=== PATIENT | male | born 1945 | race Caucasian/White ===

== ENCOUNTER 2017-09-27 18:43 | Inpatient (IN) | payer MEDICARE ==
[2017-09-27 19:04] LABS: #Basophils 0.1 thou/uL (0.0-0.2); #Eosinphils 0.2 thou/uL (0.0-0.7); #Monocytes 1.1 thou/uL (0.11-0.59); #Neutrophils 5.8 thou/uL (1.40-6.50); %Basophils 1.2 % (0.0-1.0); %Eosinophils 2.7 % (0.0-10.0); %Lymphocytes 21.8 % (21.0-51.0); %Monocytes 11.5 % (0.0-10.0); %Neutrophils 62.9 % (42.0-75.0); Hemoglobin 15.6 g/dL (14.0-18.0); Mean Corpuscular HGB CONC 36.2 g/dL (32.0-36.0); Mean Corpuscular Hemoglobin 31.5 pg (27.0-31.0); Mean Platelet Volume 8.9 fL (7.4-10.4); Platelet Count 251 thou/uL (130-400); RBC Distribution Width 11.5 % (11.5-14.5); Red Blood Cell (RBC) Count 4.96 mill/uL (4.70-6.10); White Blood Cell (WBC) Count 9.2 thou/uL (4.8-10.8)
[2017-09-27] MEDS ORDERED: Diltiazem 125 MG/25 ML ONE (19:06)
[2017-09-27] MEDS ORDERED: Enoxaparin Sodium 100 MG/ML SYRINGE ONE (19:06)
--- NOTE | 2017-09-27 19:12 | RAD ---
ONE VIEW CHEST: 09/27/17 HISTORY: Palpitations. New onset atrial fibrillation. COMPARISON: None. FINDINGS: Normal cardiac silhouette. Pulmonary vessels and hilum are normal. Costophrenic angles are clear. No masses or consolidation. No pneumothorax or osseous abnormalities. IMPRESSION: No acute cardiopulmonary process. POS: [facility]
[2017-09-27 19:18] LABS: ALT (SGPT) 21 U/L (8-55); AST (SGOT) 21 U/L (5-34); Albumin 4.4 g/dL (3.4-4.8); Alkaline Phosphatase 64 U/L (40-150); Anion Gap 14 mmol/L (10-20); BUN (Urea Nitrogen) 18 mg/dL (8.4-25.7); Bilirubin, Total 0.6 mg/dL (0.2-1.2); CK (CPK) 274 U/L (30-200); Calc. Creatinine Clearance 0 mL/min (70-130); Calcium 9.5 mg/dL (7.8-10.44); Carbon Dioxide 23 mmol/L (23-31); Chloride 107 mmol/L (98-107); Estimated GFR-MDRD 72; Globulin 3.1 g/dL (2.4-3.5); Glucose 108 mg/dL (83-110); Potassium 3.6 mmol/L (3.5-5.1); Protein, Total 7.5 g/dL (5.8-8.1); Sodium 140 mmol/L (136-145)
[2017-09-27 19:20] LABS: CKMB 5.8 ng/mL (0-6.6); Troponin I Less than 0.010 ng/mL (< 0.028)
[2017-09-27] MEDS ORDERED: HYDROcodone/Acetaminophen 5/325 mg Tablet PO PRN ×5 (21:51→23:10)
[2017-09-27] MEDS ORDERED: Ondansetron HCl/PF 4 MG/2 ML Vial IVP PRN ×2 (21:51→23:10)
[2017-09-27] MEDS ORDERED: Acetaminophen 325 MG TAB PO PRN ×2 (21:51→23:10)
[2017-09-27] MEDS ORDERED: Ondansetron ODT 4 MG TAB SL PRN (21:51)
[2017-09-27 21:55] VITALS: BMI 25.7
[2017-09-27] MEDS ORDERED: Diltiazem HCl 125 MG, Admixture Fee 1 EACH in Sodium Chloride 0.9% 100 ML IVPB SCH (22:00)
[2017-09-27 22:35] LABS: Troponin I 0.011 ng/mL (< 0.028)
[2017-09-27] MEDS ORDERED: Ondansetron ODT 4 MG TAB PO PRN (23:10)
--- NOTE | 2017-09-28 | HP ---
PRIMARY CARE PHYSICIAN: Dr. Hector Stock. CHIEF COMPLAINT: Palpitations. HISTORY OF PRESENT ILLNESS: Mr. Marte is a pleasant 72-year-old gentleman that has a history of hyp ercholesterolemia and also has a history of hypothyroidism. He was in his usual state of health unti l about 4 or 5 p.m. this evening. He noticed an irregular heart rhythm. 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 He also says that when he lays down to go to sleep, he can feel his heart beat and normally it is regular, but on this time, it seemed very irregular. He also noticed on his sports watch that his heart rate was fast. He says that he took his blood pressure to verify and noticed that his heart rate was basically going all over the place. This continued and f or this reason, he called his primary care physician and his primary care physician suggested that he go to the ER for evaluation. In the ER, he was found to be in atrial fibrillation with a variable h eart rate, primarily for rapid. He denies feeling any chest pain or shortness of breath, denies feel ing dizzy or lightheaded and he is being admitted for further evaluation. He says he has never had a nything like this happen to him before. He has had a stress test about 2 years ago which he says he flunked, but then they did a cardiac catheterization and his arteries were clean. REVIEW OF SYSTEMS: Constitutional: No fevers, chills, no night sweats, no weight loss. HEENT: No headaches, no dizziness, no visual changes, no sore throat, rhinorrhea, neck pain, no adenopathy. Pu lmonary: No hemoptysis, no cough, no wheezing. Cardiovascular: As the history of present illness. Gastrointestinal: No abdominal pain, no nausea, no vomiting, no change in bowels. Genitourinary: No urinary frequency, hematuria, no hesitancy. Neurologic: No focal weakness, numbness, no seizures . Psychiatric: No symptoms of anxiety or depression. Musculoskeletal: No muscle pains, weakness o r joint pains. Skin/Integument: No skin changes. No rash. PAST MEDICAL HISTORY: Significant for hypercholesterolemia, serotonin syndrome, BPH, and hypothyroid ism. PAST SURGICAL HISTORY: He has had right knee surgery x3 and appendectomy, lipoma and a basal cell re moved from his nose as well as squamous cell from his hoahaoism in that squamous cell carcinoma. ALLERGIES: PENICILLIN. SOCIAL HISTORY: He is . He is a retired dentist. He denies any smoking, no alcohol use. FAMILY HISTORY: Significant for cancer in his father. It was adenocarcinoma, unknown primary. Moth er just of old age. CURRENT MEDICATIONS: Include simvastatin 20 mg 1/2 tablet every 3 days and Flomax 0.4 mg daily, heather pentin 300 mg q.8 hours as needed and Tylenol #3 p.r.n.; levothyroxine, he believes it is, 50 mcg sonja ly. PHYSICAL EXAMINATION: GENERAL: He is alert and oriented. He appears to be in no acute distress. VITAL SIGNS: His heart rate is ranging between 70 and 90s. Blood pressure was 124/56, respiratory r ate of 18, temperature is 97.7. HEENT: Pupils are equal, round, and reactive. Extraocular muscles are intact. His sclerae are anic teric. Throat, no erythema, no exudates. NECK: No adenopathy, no bruits. LUNGS: Clear. No wheezing, no rales. CARDIOVASCULAR: He has an irregular rhythm and the heart rate is ranging between normal and tachycar dic. I was not able to appreciate any murmurs. ABDOMEN: Soft, it is nontender, nondistended. Positive for bowel sounds. No rebound, no guarding. EXTREMITIES: There is no clubbing, cyanosis, no edema. NEUROLOGICALLY: Muscle strength is 5/5 in both his upper and lower extremities and it is grossly non focal. LABORATORY RESULTS: White blood cell count 9.2, hemoglobin 15.6, hematocrit is 43.2, platelet count is 251. Sodium 140, potassium 3.6, chloride is 107, CO2 is 23, BUN of 18, creatinine 1.02, glucose i s 108. Troponin is less than 0.010. TSH is 2.0192. He had a chest x-ray that was essentially negat caleb with no airspace disease. His heart size is normal. This is by my reading. ASSESSMENT AND PLAN: 1. This is a 72-year-old gentleman that presents with atrial fibrillation and rapid ventricular resp onse. The heart rate has been variable. He did notice some low heart rates a few days ago, but he i s not sure if it was an association to atrial fibrillation. He is currently on a Cardizem drip which we will continue. Since he has remained in atrial fibrillation most of the day, we will go ahead an d start him on anticoagulation in the form of Lovenox. Order an echocardiogram. Continue to trend h is cardiac enzymes and consult Cardiology for further recommendations. 2. Hypothyroidism. His TSH was checked in the ER. This was normal and it does not appear that over replacement of thyroid is contributing to this. 3. History of benign prostatic hypertrophy. We will continue his Flomax.
[2017-09-28] MEDS ORDERED: Gabapentin 300 MG CAP PO PRN (00:23)
[2017-09-28] MEDS ORDERED: Acetaminophen/Codeine 30-300mg Tablet PO PRN (00:23)
[2017-09-28 01:47] LABS: Troponin I 0.021 ng/mL (< 0.028)
[2017-09-28] MEDS ORDERED: Levothyroxine Sodium 50 MCG TAB PO SCH (06:00)
[2017-09-28 06:16] LABS: #Basophils 0.1 thou/uL (0.0-0.2); #Eosinphils 0.5 thou/uL (0.0-0.7); #Lymphocytes 1.9 thou/uL (1.20-3.40); #Monocytes 0.9 thou/uL (0.11-0.59); #Neutrophils 3.9 thou/uL (1.40-6.50); %Basophils 0.8 % (0.0-1.0); %Eosinophils 7.3 % (0.0-10.0); %Monocytes 12.8 % (0.0-10.0); %Neutrophils 53.2 % (42.0-75.0); Anion Gap 12 mmol/L (10-20); BUN (Urea Nitrogen) 20 mg/dL (8.4-25.7); Calc. Creatinine Clearance 108 mL/min (70-130); Calcium 8.6 mg/dL (7.8-10.44); Carbon Dioxide 23 mmol/L (23-31); Chloride 107 mmol/L (98-107); Estimated GFR-MDRD Greater than 90; Glucose 113 mg/dL (83-110); Hemoglobin 14.2 g/dL (14.0-18.0); Mean Corpuscular HGB CONC 33.9 g/dL (32.0-36.0); Mean Corpuscular Hemoglobin 31.3 pg (27.0-31.0); Mean Corpuscular Volume 92.5 fl (80.0-94.0); Mean Platelet Volume 8.3 fL (7.4-10.4); Platelet Count 232 thou/uL (130-400); Potassium 3.6 mmol/L (3.5-5.1); RBC Distribution Width 12.4 % (11.5-14.5); Red Blood Cell (RBC) Count 4.53 mill/uL (4.70-6.10); Sodium 138 mmol/L (136-145); White Blood Cell (WBC) Count 7.3 thou/uL (4.8-10.8)
[2017-09-28] MEDS ORDERED: Enoxaparin Sodium 40 MG/0.4 ML SYRINGE SC SCH (09:00)
[2017-09-28] MEDS ORDERED: Enoxaparin Sodium 80 MG/0.8 ML SYRINGE SC SCH (09:00)
--- NOTE | 2017-09-28 09:10 | CON ---
DATE OF CONSULTATION: 09/28/2017 REASON FOR CONSULTATION: Atrial fibrillation. PRIMARY CARE PROVIDER: Dr. Leon. HISTORY OF PRESENT ILLNESS: Mr. Marte is a very pleasant 72-year-old gentleman with no significant past medical history who recently presented with atrial fibrillation. He is now in sinus rhythm. He states he developed tachycardia with an irregular heartbeat noted on his Fitbit. This happened ye sterday while playing golf. He presented to the emergency room with atrial fibrillation with RVR. H e converted spontaneously to sinus rhythm this morning. No chest pain, pressure, shortness of breath or other associated symptoms. CHADS VASc score is 1 giv en his age of 72. He has no hypertension, diabetes. His LVEF is unknown. He has no previous histor y of underlying vascular disease. PAST MEDICAL HISTORY: Hyperlipidemia, serotonin syndrome, BPH, hypothyroidism, knee surgery, appende ctomy, lipoma basal cell removal. ALLERGIES: PENICILLIN. 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 No tobacco or alcohol use. FAMILY HISTORY: Negative for CAD. CURRENT MEDICATIONS: Simvastatin, levothyroxine, gabapentin and Flomax. REVIEW OF SYSTEMS: Ten point systems reviewed, as above, otherwise negative. PHYSICAL EXAMINATION: VITAL SIGNS: Blood pressure 105/56, pulse 60, temperature afebrile. GENERAL: Patient is a pleasant male who is in no acute distress. The patient appears his stated age. NEUROLOGIC: The patient is alert and oriented times 3 with no focal neurologic deficits. HEENT: Sclerae without icterus. Mouth has moist mucous membranes with normal pallor. NECK: No JVD. Carotid upstroke brisk. No bruits bilaterally. LUNGS: Clear to auscultation with unlabored respirations. BACK: No scoliosis or kyphosis. CARDIAC: Regular rate and rhythm with normal S1 and S2. No S3 or S4 noted. No significant rubs, mur murs, thrills, or gallops noted throughout the precordium. PMI is not displaced. There is no parast ernal heave. ABDOMEN: Soft, nontender, nondistended. No peritoneal signs present. No hepatosplenomegaly. No abn ormal striae. EXTREMITIES: 2+ femoral and 2+ dorsalis pedis pulses. No cyanosis, clubbing, or edema. SKIN: No gross abnormalities. PERTINENT LABS: Hemoglobin 14.2, white blood cell count 7.3, platelet count 232, creatinine 0.79. IMPRESSION: Atrial fibrillation, now sinus rhythm. RECOMMENDATIONS: Dr. Marte's CHADS-VASc score is estimated at 1. I discussed risks, benefits of an ticoagulation therapy. He has opted for anticoagulation therapy. We will also place him on low dose Toprol at 25 mg p.o. at bedtime. We will defer antiarrhythmic therapy for now. May consider a 3-we ek outpatient event recorder to assess for dysrhythmias as an outpatient. If his LVEF is normal, it would be okay from my standpoint to discharge home with close outpatient followup.
[2017-09-28 11:35] VITALS: BP 139/70; TEMP 98.2
[2017-09-28 13:22] LABS: Hemoglobin 14.8 g/dL (14.0-18.0); Platelet Count 252 thou/uL (130-400)
[2017-09-28 13:40] LABS: Calc. Creatinine Clearance 113 mL/min (70-130); Estimated GFR-MDRD Greater than 90
[2017-09-28] MEDS ORDERED: Apixaban 5 MG TAB PO SCH (21:00)
[2017-09-28] MEDS ORDERED: Tamsulosin HCl 0.4 MG CAP PO SCH (21:00)
== END 2017-09-28 13:58 | disposition home or self-care (01) | DRG 310 ==
LOC: SCSER 18:43 → 2NO 19:40 → OBSVTOIN 23:05
PROVIDERS: ADMIT Family Medicine; ATTEND Family Medicine
DX: I48.91 Unspecified atrial fibrillation (principal); G25.89 Other specified extrapyramidal and movement disorders; E03.9 Hypothyroidism, unspecified; N40.0 Benign prostatic hyperplasia without lower urinary tract symptoms; E78.5 Hyperlipidemia, unspecified
CPT/HCPCS: 36415; 71045; 80048; 80053; 82553; 84443; 84484; 85025; 93005; 93306; 96365; 96372; 96376; A4216; J1650

== ENCOUNTER 2022-01-14 10:46 | Outpatient (CLI) | payer MEDICARE ==
[2022-01-14 12:38] LABS: Hemoglobin 16.7 g/dL (13.5-17.5); Mean Corpuscular HGB CONC 33.5 g/dL (32.0-36.0); Mean Corpuscular Hemoglobin 30.4 pg (27.0-33.0); Mean Corpuscular Volume 90.5 fl (81.2-95.1); Mean Platelet Volume 10.2 fl (7.4-10.4); Platelet Count 348 10x3/uL (150-450); RBC Distribution Width 12.9 % (11.5-14.5); White Blood Cell (WBC) Count 7.2 10x3/uL (3.5-10.5)
[2022-01-14 12:54] LABS: INR-International Normal Ratio 1.1; Prothrombin Time 11.4 sec (9.5-12.1)
[2022-01-14 13:00] LABS: Anion Gap 14 mmol/L (10-20); BUN (Urea Nitrogen) 15 mg/dL (8.4-25.7); Calc. Creatinine Clearance 0 mL/min (70-130); Calcium 9.6 mg/dL (7.8-10.44); Carbon Dioxide 27 mmol/L (23-31); Chloride 106 mmol/L (98-107); Estimated GFR 74; Glucose 102 mg/dL (83-110); Potassium 4.8 mmol/L (3.5-5.1); Sodium 142 mmol/L (136-145)
== END 2022-01-14 10:47 | disposition home or self-care (01) ==
LOC: LABBT 10:46
PROVIDERS: ATTEND Internal Medicine Cardiovascular Disease
DX: Z01.812 Encounter for preprocedural laboratory examination (principal); I48.0 Paroxysmal atrial fibrillation; I48.3 Typical atrial flutter; Z20.822 Contact with and (suspected) exposure to COVID-19
CPT/HCPCS: 80048; 85027; 85610; 87811

== ENCOUNTER 2022-01-19 06:03 | Day surgery (SDC) | payer MEDICARE ==
[2022-01-15 10:29] VITALS: BMI 25.3
[2022-01-19] MEDS ORDERED: Protamine Sulfate 50 MG/5 ML VIAL ONE (06:40)
[2022-01-19] MEDS ORDERED: Heparin 10,000 UNITS/ 10 ML VIAL ONE (06:40)
[2022-01-19] MEDS ORDERED: Heparin 25,000 units/D5W 500 ML ONE (06:40)
[2022-01-19] MEDS ORDERED: fentaNYL Citrate/PF 100 MCG/2 ML SYRINGE ONE ×2 (07:45→13:18)
[2022-01-19] MEDS ORDERED: Rocuronium Bromide 10 MG/ML (10ML VIAL) ONE (09:24)
[2022-01-19] MEDS ORDERED: Lidocaine 1% PF 5 ML VIAL ONE (09:24)
[2022-01-19] MEDS ORDERED: Dexamethasone 20 MG/5 ML VIAL ONE (09:24)
[2022-01-19] MEDS ORDERED: Glycopyrrolate 0.2 MG/ML 5 ML SYRINGE ONE (09:24)
[2022-01-19] MEDS ORDERED: Neostigmine Methylsulfate 3 MG/3 ML SYRINGE ONE (09:24)
[2022-01-19] MEDS ORDERED: PROPOFOL 200 MG/20 ML VIAL ONE (09:24)
[2022-01-19] MEDS ORDERED: Ondansetron PF 4 MG/2 ML Vial ONE (09:24)
[2022-01-19] MEDS ORDERED: ePHEDrine 50 MG/ML VIAL ONE (09:24)
[2022-01-19] MEDS ORDERED: HYDROcodone/Acetaminophen 5/325 mg Tablet ONE (13:58)
== END 2022-01-19 16:00 | disposition home or self-care (01) ==
LOC: CCL 06:03
PROVIDERS: ATTEND Internal Medicine Cardiovascular Disease
PROC: B246ZZ4 Ultrasonography of Right and Left Heart, Transesophageal (ICD-10-PCS; principal; 2022-01-19)
PROC: 02583ZZ Destruction of Conduction Mechanism, Percutaneous Approach (ICD-10-PCS; 2022-01-19)
PROC: 02K83ZZ Map Conduction Mechanism, Percutaneous Approach (ICD-10-PCS; 2022-01-19)
DX: I48.0 Paroxysmal atrial fibrillation (principal); I48.3 Typical atrial flutter; I34.0 Nonrheumatic mitral (valve) insufficiency; I49.5 Sick sinus syndrome; E78.5 Hyperlipidemia, unspecified; E03.9 Hypothyroidism, unspecified; Z79.01 Long term (current) use of anticoagulants; Z79.890 Hormone replacement therapy; Z79.899 Other long term (current) drug therapy; Z88.0 Allergy status to penicillin
CPT/HCPCS: 85347; 93005; 93312; 93613; 93655; 93656; 93662; C1730; C1731; C1732; C1760; C1769; C1894; J1100; J1644; J2405; J2704; J2720; J3490